=== PATIENT | male | born 1970 | race Caucasian/White ===

== ENCOUNTER 2017-06-02 23:31 | Emergency (ER) | payer OTHER ==
[~2017-06-02] VITALS: Ht 180.3 cm; Wt 107.4 kg
[2017-06-02 23:47] VITALS: Ht 180.3 cm; Wt 107.4 kg
[2017-06-03] MEDS ORDERED: NICO2GUM7 PO (00:16)
--- NOTE | 2017-06-03 00:16 | EMERGENCY ROOM VISIT NOTE ---
History Report prepared by Katieibcris: Sendy Sandoval Under the Supervision of: Dr. Elliott Salmon D.O. First contact with patient: 23:53 Chief Complaint: EAR PAIN Stated Complaint: LOUD RINGING IN RT EAR History of Present Illness The patient is a 47 year old male who presents to the Emergency Room with complaints of intermittent right ear ringing that began Wednesday evening. The patient states that he is a former smoker and recently cheated and started chewing Nicorette gum. He states that he thought the ringing was due to him chewing gum. The patient denies any popping in his ears. He denies any coughing or sneezing. The patient states that his ear feels clogged. The patient denies any allergies. He denies any headache. Source of History: patient Onset: Wednesday evening Position: ear (right) Quality: other (ringing) Timing: intermittent Associated Symptoms: No headache, No cough Note: Associated Symptoms: right ear feels clogged Review of Systems See HPI for pertinent positives and negatives. A total of ten systems were reviewed and were otherwise negative. Past Medical & Surgical Medical Problems: (1) Asthma Surgical Problems: (1) Previous back surgery Family History Patient reports no known family medical history. Social History Smoking Status: Current Some Day Smoker Alcohol Use: occasionally Housing Status: lives alone Occupation Status: employed Current/Historical Medications Scheduled Nicotine Polacrilex (Nicorette 2MG Gum), 2 MG PO DIRECTED Allergies Coded Allergies: No Known Allergies (Unverified , 06/03/17) Physical Exam Vital Signs Date Time Temp Pulse Resp B/P (MAP) Pulse Ox O2 Delivery O2 Flow Rate FiO2 06/02/17 23:47 36.8 117 19 132/76 97 Room Air Physical Exam GENERAL: Awake, alert, well-appearing, in no distress HENT: Normocephalic, atraumatic. Oropharynx unremarkable. Left TM is clear, right TM is pearly white, but clear fluid behind the TM and ossicles are not visualized very well. EYES: Normal conjunctiva. Sclera non-icteric. NECK: Supple. No nuchal rigidity. FROM. No JVD. RESPIRATORY: Clear to auscultation. CARDIAC: Regular rate, normal rhythm. Extremities warm and well perfused. Pulses equal. ABDOMEN: Soft, non-distended. No tenderness to palpation. No rebound or guarding. No masses. RECTAL: Deferred. MUSCULOSKELETAL: Chest examination reveals no tenderness. The back is symmetrical on inspection without obvious abnormality. There is no CVA tenderness to palpation. No joint edema. LOWER EXTREMITIES: Calves are equal size bilaterally and non-tender. No edema. No discoloration. NEURO: Normal sensorium. No sensory or motor deficits noted. SKIN: No rash or jaundice noted. Medical Decision & Procedures ED Course 2356: The patient was evaluated in room C7. A complete history and physical exam was performed. I discussed the exam findings with him and I discussed the treatment plan. He verbalized complete understanding and agreement. He is ready to go home. Patient will be treated for tenderness I suspect that he has a serous otitis media which is causing this rhinitis. Patient was instructed to use Claritin and a decongestant Medical Decision Differential diagnoses include but are not limited to; allergies, serous otitis media, otitis externa, tinnitus Medication Reconcilliation Current Medication List: was personally reviewed by me Blood Pressure Screening Patient's blood pressure: Elevated blood pressure Blood pressure disposition: Elevated BP felt to be situational, Did not require urgent referral Impression Primary Impression: Tinnitus Additional Impression: Allergic rhinitis Scribe Attestation The scribe's documentation has been prepared under my direction and personally reviewed by me in its entirety. I confirm that the note above accurately reflects all work, treatment, procedures, and medical decision making performed by me. Departure Information Dispostion Home / Self-Care Referrals No Doctor, Assigned (PCP) Patient Instructions ED Otitis Media Serous Adult, My [facility], Tinnitus Problem Qualifiers
[2017-06-03 00:21] VITALS: BP 132/76; PULSE 117; TEMP 36.8; O2SAT 97
== END 2017-06-03 00:30 | disposition home or self-care (01) ==
LOC: C.EDB 23:34 → C.EDC 06-03 00:30
DX: H93.11 Tinnitus, right ear (principal); J30.9 Allergic rhinitis, unspecified; J45.909 Unspecified asthma, uncomplicated; F17.200 Nicotine dependence, unspecified, uncomplicated